=== PATIENT | female | born 1970 | race Caucasian/White ===

== ENCOUNTER 2022-08-19 07:00 | Day surgery (SDC) | payer OTHER ==
[2022-08-19] VITALS (255 sets, daily range): BP systolic 87–169; BP diastolic 43–92
[~2022-08-19] VITALS: Ht 160 cm; Wt 75.0 kg
[2022-08-19 08:39] LABS: BASO% 0.2 % (0-3); HEMOGLOBIN 12.8 g/dl (12.0-16.0); IMMATURE GRANULOCYTES 0.2 % (0.0-5.0); LYMPH% 27.5 % (15-41); MEAN CELL VOLUME 89.1 fL CALC (80.0-100.0); MEAN CORPUSCULAR HGB 28.5 pG CALC (26.0-32.0); MONO% 6.9 % (2-13); NEUT# 3.84 thou/uL (2.00-7.15); NEUT% 63.2 % (42-76); RED BLOOD COUNT 4.49 mill/uL (4.20-5.60); RED CELL DISTRI WIDTH 13.5 % (11.5-15.5)
[2022-08-19 08:52] LABS: ALBUMIN 4.4 g/dL (3.2-5.0); ALKALINE PHOSPHATASE 121 u/l (38-126); ANION GAP 12 (6-22 (CALC)); BILIRUBIN, TOTAL 0.4 mg/dL (0.02-1.3); BUN 11 mg/dL (7-17); BUN/CREATININE RATIO 13 (12-20 (CALC)); CARBON DIOXIDE 27 mmol/l (22-30); CHLORIDE 105 mmol/l (95-108); CREATININE 0.8 mg/dL (0.5-1.0); GFR FOR AFR.AMER. > 60 ML/MIN (>=60 (CALC)); GFR OTHER RACES > 60 ML/MIN (>=60 (CALC)); SGOT/AST 44 u/l (14-36); SODIUM 140 mmol/l (137-146); TOTAL PROTEIN 8.4 g/dL (6.3-8.2)
[2022-08-19] MEDS ORDERED: VENTOLIN HFA108 MCG PO (09:08)
[2022-08-19] MEDS ORDERED: ADVAIR DISK1 INH (09:09)
[2022-08-19] MEDS ORDERED: OMEPRAZOLE DR40 MG PO (09:10)
[2022-08-19] MEDS ORDERED: ASPIRIN LOW81 M1 PO (09:11)
[2022-08-19] MEDS ORDERED: HABITROL21 MG TD (09:14)
[2022-08-19] MEDS ORDERED: KLONOPIN2 MG PO (16:09)
[2022-08-19] MEDS ORDERED: NALTREXONE50 MG PO (16:09)
[2022-08-19] MEDS ORDERED: CLONIDINE0.1 MG PO (16:09)
[2022-08-20 04:00] VITALS: BP 119/57
[2022-08-20 04:06] LABS: HEMATOCRIT 38.3 % (37.0-47.0); HEMOGLOBIN 12.4 g/dl (12.0-16.0); IMMATURE GRANULOCYTES 0.8 % (0.0-5.0); LYMPH% 3.1 % (15-41); MEAN CELL VOLUME 87.4 fL CALC (80.0-100.0); MEAN CORPUSCULAR HGB 28.3 pG CALC (26.0-32.0); MEAN CORPUSCULAR HGB CONC 32.4 g/dL CAL (32.0-36.0); MONO% 3.1 % (2-13); NEUT# 20.03 thou/uL (2.00-7.15); RED BLOOD COUNT 4.38 mill/uL (4.20-5.60); RED CELL DISTRI WIDTH 13.1 % (11.5-15.5)
[2022-08-20 07:26] LABS: ALBUMIN 3.9 g/dL (3.2-5.0); ALKALINE PHOSPHATASE 137 u/l (38-126); ANION GAP 14 (6-22 (CALC)); BILIRUBIN, TOTAL 0.8 mg/dL (0.02-1.3); BUN 6 mg/dL (7-17); BUN/CREATININE RATIO 9 (12-20 (CALC)); CARBON DIOXIDE 23 mmol/l (22-30); CHLORIDE 101 mmol/l (95-108); CREATININE 0.7 mg/dL (0.5-1.0); GFR FOR AFR.AMER. > 60 ML/MIN (>=60 (CALC)); GFR OTHER RACES > 60 ML/MIN (>=60 (CALC)); POTASSIUM 4.5 mmol/l (3.5-5.1); SGOT/AST 59 u/l (14-36); SODIUM 133 mmol/l (137-146); TOTAL PROTEIN 7.4 g/dL (6.3-8.2)
[2022-08-20 08:11] VITALS: BP 102/68
== END 2022-08-20 17:42 | disposition left against medical advice (07) | DRG 894 ==
LOC: ANR 07:00 → MS2 07:00 → ANR 08-20 17:42
PROVIDERS: ATTEND Anesthesiology Critical Care Medicine
DX: F11.20 Opioid dependence, uncomplicated (principal)
CPT/HCPCS: J0131; J2060; J2354; J3475